=== PATIENT | male | born 1950 | race Caucasian/White ===

== ENCOUNTER 2017-10-16 09:52 | Day surgery (SDC) | payer MEDICARE ==
[2017-10-16] MEDS: Polymyxin B/Trimethoprim 10 ML Bottle EYERT SCH ×4 (11:29→13:16)
[2017-10-16] MEDS: Brimonidine 0.2% Ophth Soln 5 ML Bottle EYERT SCH ×4 (11:35→13:16)
[2017-10-16] MEDS: Phenylephrine 2.5% Ophth Soln 15 ML Bot EYERT SCH ×4 (11:42→12:28)
[2017-10-16] MEDS: Tropicamide 1% Ophth Soln 15 ML Bottle EYERT SCH ×4 (11:48→12:32)
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
[2017-10-16] MEDS: Lidocaine 1% PF 2 ML SDV INJECT SCH ×2 (12:39→13:02)
[2017-10-16] MEDS: Phenylephrine 2.5% Ophth Soln 2 ML Bot EYERT SCH ×2 (12:39→12:57)
[2017-10-16] MEDS: Tetracaine HCl/PF 0.5% 4 ML Bottle EYERT SCH ×3 (12:39→13:02)
[2017-10-16] MEDS: Cefuroxime 10 MG/ML SYRINGE EYERT SCH ×2 (12:40→13:16)
[2017-10-16] MEDS: Pilocarpine 4% Ophth Soln 15 ML Bot EYERT SCH ×2 (12:40→13:16)
--- NOTE | 2017-10-16 13:19 | PCM48HPAN ---
Post Anesthesia Note - EVALUATION WITHIN 48HRS OF ANESTHETIC Vital Signs in Normal Range: Yes Patient Participated in Evaluation: Yes Respiratory Function Stable: Yes Airway Patent: Yes Cardiovascular Function Stable: Yes Hydration Status Stable: Yes Pain Control Satisfactory: Yes Nausea and Vomiting Control Satisfactory: Yes Mental Status Recovered: Yes Pulse Rate: 46 SaO2: 98 Resp Rate: 18 Temperature: 36.5 C Blood Pressure: 148/68
== END 2017-10-16 13:28 | disposition home or self-care (01) ==
LOC: JD.SDS 09:52
PROVIDERS: ATTEND Ophthalmology
DX: H25.813 Combined forms of age-related cataract, bilateral (principal); H35.3131 Nonexudative age-related macular degeneration, bilateral, early dry stage; H35.373 Puckering of macula, bilateral; H02.834 Dermatochalasis of left upper eyelid; H02.831 Dermatochalasis of right upper eyelid; H21.81 Floppy iris syndrome; I10 Essential (primary) hypertension; Z79.82 Long term (current) use of aspirin; Z79.899 Other long term (current) drug therapy; Z83.518 Family history of other specified eye disorder; Z88.5 Allergy status to narcotic agent; Z88.6 Allergy status to analgesic agent
CPT/HCPCS: 66982; C1780; J0697; A9270-GY; J2001